=== PATIENT | male | born 1975 | race Caucasian/White ===

== ENCOUNTER 2024-01-31 11:58 | Outpatient (CLI) | payer BC ==
[2024-01-31 14:25] LABS: Anion Gap 10 mmol/L (10-20); BUN (Urea Nitrogen) 15 mg/dL (8.9-20.6); Calc. Creatinine Clearance 0 mL/min (70-130); Calcium 8.8 mg/dL (7.8-10.44); Carbon Dioxide 27 mmol/L (22-29); Chloride 107 mmol/L (98-107); Estimated GFR 107; Glucose 119 mg/dL (70-105); Potassium 4.1 mmol/L (3.5-5.1); Sodium 140 mmol/L (136-145)
[2024-01-31 15:14] LABS: #Basophils 0.08 10x3/uL (0.0-0.2); %Basophils 1.5 % (0.0-1.0); %Eosinophils 2.4 % (0.0-10.0); %Lymphocytes 29.5 % (21.0-51.0); %Monocytes 9.8 % (0.0-10.0); %Neutrophils 56.6 % (42.0-75.0); Hematocrit 28.8 % (42.0-52.0); Mean Corpuscular HGB CONC 27.8 g/dL (32.0-36.0); Mean Corpuscular Volume 64.7 fL (78.0-98.0); Mean Platelet Volume 9.9 fL (7.4-10.4); Platelet Count 295 10x3/uL (130-400); Red Blood Cell (RBC) Count 4.45 mill/uL (4.70-6.10); Reflex for Review?? YES
[2024-01-31 16:20] LABS: Anisocytosis MODERATE=16-30 cells HPF (0-5); Hypochromia SLIGHT = 6-15 cells HPF (0-5); Microcytosis SLIGHT = 6-15 cells HPF (0-5); Ovalocytes SLIGHT = 2-5 cells HPF (0-1); Platelet Adequacy Comment Platelets Normal; Polychromasia SLIGHT = 2-3 cells HPF (0-2); Schistocytes SLIGHT = 2-5 cells HPF (0-1); Target Cells SLIGHT = 2-5 cells HPF (0-1)
== END 2024-01-31 11:59 | disposition home or self-care (01) ==
LOC: LABBT 11:58
PROVIDERS: ATTEND Orthopaedic Surgery Hand Surgery
DX: Z01.818 Encounter for other preprocedural examination (principal); G56.01 Carpal tunnel syndrome, right upper limb; G56.21 Lesion of ulnar nerve, right upper limb
CPT/HCPCS: 80048; 85025; 85060; 93005; 93010

== ENCOUNTER 2024-02-05 07:59 | Day surgery (SDC) | payer BC ==
[2024-01-31 12:17] VITALS: BMI 39.4
[2024-02-05] MEDS ORDERED: fentaNYL PF 100 MCG/2 ML SYRINGE ONE ×2 (09:27→14:23)
[2024-02-05] MEDS ORDERED: PROPOFOL 0 ML ONE (09:27)
[2024-02-05] MEDS ORDERED: Midazolam HCl 2 mg/2 ml Vial ONE ×3 (09:30→14:24)
[2024-02-05] MEDS ORDERED: CEFAZOLIN 2 GM VIAL ONE (09:30)
[2024-02-05] MEDS ORDERED: Lidocaine 1% PF 5 ML VIAL ONE (10:07)
[2024-02-05] MEDS ORDERED: Glycopyrrolate 0.2 MG/ML 5 ML SYRINGE ONE (10:07)
[2024-02-05] MEDS ORDERED: Ondansetron PF 4 MG/2 ML Vial ONE (10:15)
[2024-02-05] MEDS ORDERED: Dexamethasone 20 MG/5 ML VIAL ONE (10:15)
[2024-02-05] MEDS ORDERED: HYDROmorphone 2 MG/ML VIAL ONE (10:45)
[2024-02-05] MEDS ORDERED: Ketorolac Tromethamine 30 MG (1 mL) VIAL ONE ×2 (11:32→14:23)
[2024-02-05] MEDS ORDERED: PROPOFOL 20 ML ONE (14:24)
== END 2024-02-05 19:15 | disposition home or self-care (01) ==
LOC: SDC 07:59
PROVIDERS: ATTEND Orthopaedic Surgery Hand Surgery
PROC: 01N50ZZ Release Median Nerve, Open Approach (ICD-10-PCS; principal; 2024-02-05)
PROC: 0JBG0ZZ Excision of Right Lower Arm Subcutaneous Tissue and Fascia, Open Approach (ICD-10-PCS; principal; 2024-02-05)
PROC: 01N40ZZ Release Ulnar Nerve, Open Approach (ICD-10-PCS; principal; 2024-02-05)
DX: G56.01 Carpal tunnel syndrome, right upper limb (principal); G56.21 Lesion of ulnar nerve, right upper limb; D17.21 Benign lipomatous neoplasm of skin and subcutaneous tissue of right arm; I10 Essential (primary) hypertension; E11.9 Type 2 diabetes mellitus without complications; D64.9 Anemia, unspecified; Z98.84 Bariatric surgery status; Z79.899 Other long term (current) drug therapy
CPT/HCPCS: 88304; A6223; C1713; J1100; J1885; J2250; J2405; J2704